=== PATIENT | female | born 1965 | race Caucasian/White ===

== ENCOUNTER → 2021-02-12 11:37 | Outpatient (CLI) | payer OTHER, SELFPAY ==
--- NOTE | 2021-02-12 11:40 | DI.RAD.S_ITS ---
PROCEDURE: XR ANKLE RT MIN 3V INDICATIONS: post fall TECHNIQUE: 3 views of the ankle were acquired. COMPARISON: None. FINDINGS: Bones: There are curvilinear densities distal to the lateral malleolus consistent with avulsion fracture. No dislocations. Ankle mortise is normally aligned. No suspicious bony lesions. Soft tissues: Small tibiotalar joint effusion. Achilles tendon appears normal. Soft tissue swelling over the lateral malleolus. IMPRESSION: Avulsion fracture of the lateral malleolus. Dictated by: Ana Brewer M.D. on 02/12/2021 at 12:01 Approved by: Ana Brewer M.D. on 02/12/2021 at 12:03
== END ==
PROVIDERS: PCP Internal Medicine; Referring Provider Physician Assistant; Visit Provider Physician Assistant
DX: M25.571 Pain in right ankle and joints of right foot (principal); M25.471 Effusion, right ankle; S82.61XA Displaced fracture of lateral malleolus of right fibula, initial encounter for closed fracture; W19.XXXA Unspecified fall, initial encounter
CPT/HCPCS: 73610

== ENCOUNTER 2021-08-27 08:50 | Emergency (ER) | payer OTHER, SELFPAY ==
[2021-08-27] VITALS (9 sets, daily range): BP systolic 104–134; BP diastolic 51–70; PULSE 67–89; RESP 13–21; TEMP 37.1; O2SAT 93–100; BMI 22.1
--- NOTE | 2021-08-27 08:57 | DI.RAD.S_ITS ---
PROCEDURE: XR CHEST 1V INDICATIONS: chest pain TECHNIQUE: One view of the chest was acquired. COMPARISON: None. FINDINGS: Surgical changes and devices: None. Lungs and pleura: Lungs are clear. No pleural effusions or pneumothorax. Mediastinum: Mediastinal contours appear normal. Heart size is normal. Bones and chest wall: No suspicious bony lesions. Overlying soft tissues appear unremarkable. IMPRESSION: Unremarkable portable chest. Dictated by: Luciano Cueva M.D. on 08/27/2021 at 8:13 Approved by: Luciano Cueva M.D. on 08/27/2021 at 8:14
--- NOTE | 2021-08-27 09:01 | PC.NURSE ---
Pt received covid booster yesterday,pt feeling dizzy/syncopal today
[2021-08-27] MEDS: SODIUM CHLORIDE 0.9% 1,000 ML 1000 ML IV (09:18)
[2021-08-27 09:20] LABS: Add Manual Diff / Slide Review NO; Basophils Absolute Auto 0 /uL (0-100); Basophils Percent Auto 0.4 % (0-2); Eosinophils Absolute Auto 0 /uL (0-450); Hematocrit 36.7 % (36-46); Hemoglobin 12.6 g/dL (12.0-16.0); Lymphocytes Absolute Auto 500 /uL (1100-4500); Lymphocytes Percent Auto 13.6 % (25-40); Mean Corpuscular HGB Conc 34.3 % (30-36); Mean Corpuscular Hemoglobin 33.2 PG (26-34); Mean Corpuscular Volume 96.8 fL (80-100); Monocytes Absolute Auto 200 /uL (0-900); Monocytes Percent Auto 5.2 % (3-14); Neutrophils Absolute Auto 3100 /uL (1500-7000); Neutrophils Percent Auto 79.8 % (50-75); Platelet Count 111 X10^3/uL (150-400); Red Blood Cell Count 3.79 X10^6/uL (4.0-5.2); Red Cell Distribution Width 12.9 % (11.6-14.8); White Blood Cell Count 3.9 X10^3/uL (4.5-11.0)
[2021-08-27 09:31] LABS: Alanine Aminotransferase 13 IU/L (<35); Albumin 3.5 g/dL (3.5-5.0); Albumin Globulin Ratio 1.5 (1.0-2.8); Alkaline Phosphatase 31 U/L (38-126); Aspartate Aminotransferase 17 IU/L (14-36); BUN Creatinine Ratio 18.2 (6-22); Bilirubin Total 0.5 mg/dL (0.2-1.3); Blood Urea Nitrogen 12 mg/dL (7-17); Calcium 8.2 mg/dL (8.4-10.2); Carbon Dioxide 29 mmol/L (22-32); Chloride 107 mmol/L (98-107); Creatine Kinase 47 U/L (30-135); Estimated Glomerular Filt Rate > 60.0 mL/min (>60); Globulin 2.4 g/dL (1.7-4.1); Glucose 103 mg/dL (70-100); HEMOLYSIS < 15 (0-50); Lipase 46 U/L (23-300); Magnesium 1.7 mg/dL (1.6-2.3); Potassium 3.9 mmol/L (3.4-5.1); Sodium 137 mmol/L (137-145); Total Protein 5.9 g/dL (6.3-8.2)
[2021-08-27 09:43] LABS: Troponin I < 0.012 ng/mL (0.01-0.034)
--- NOTE | 2021-08-27 09:54 | ED_ITS ---
HPI - Syncope General Chief Complaint: Syncope Stated Complaint: Syncopal episodes Time Seen by Provider: 08/27/21 08:58 Source: patient Mode of arrival: EMS Limitations: no limitations History of Present Illness HPI narrative: Otherwise healthy 56-year-old woman who received her Moderna vaccine booster yesterday. Did not have any issues with the initial vaccine went to bed and feeling well but when she woke up this morning she went to make coffee and had a syncopal episode. She describes feeling dizzy lightheaded aware that she was going to pass out, her was available and helped her to the floor so there was no injury with the fall. She was immediately alert with no seizure- like activity and no loss of urine or stool. Medics were called and when they went to sit her up she again had a near syncopal episode and they laid her flat. That she typically runs both a low blood pressure and a low pulse. She describes no fevers, headaches, chest pain palpitation, abdominal pain no nausea, vomiting, diarrhea, paresthesias or vision changes. Related Data Home Medications Medication Instructions Recorded Confirmed No Known Home Medications 02/12/21 02/12/21 Allergies Allergy/AdvReac Type Severity Reaction Status Date / Time No Known Drug Allergies Allergy Verified 08/27/21 08:58 Review of Systems Review of Systems Narrative: Remainder of complete review of systems is otherwise unremarkable except for that included in the HPI. Patient History Social History Smoking Status: Never smoker Smoking Status: Never smoker alcohol intake frequency: holidays/special occasions only Substance Use Type: does not use Exam Narrative Exam Narrative: General: Healthy appearing, in no acute distress. Able to give a complete and coherent history. Well-nourished well-developed HEENT: Moist mucous membranes, normal sclera with reactive pupils, Neck: No JVD, supple Respiratory: Lungs are clear to auscultation, no wheezing no rales no rhonchi. Full and symmetrical air movement Cardiac: Regular rate and rhythm no murmurs no bruits Abdomen: Soft, nontender, good bowel tones, no flank pain Skin: Warm and dry, no rashes Neurologic: Grossly neurologically intact with no obvious asymmetries or abnormalities Extremities: No trauma, well perfused Psych: Cooperative, appropriate insight and affect After L of fluid, she is no longer orthostatic with blood pressure standing 115/76 and heart rate at 82 with no dizziness or lightheadedness Initial Vital Signs Initial Vital Signs: Vital Signs Temperature 98.7 F 08/27/21 08:55 Pulse Rate 67 08/27/21 08:55 Respiratory Rate 14 08/27/21 08:55 Blood Pressure 111/55 L 08/27/21 08:55 Pulse Oximetry 100 08/27/21 08:55 Course Orders Ordered: ED Orders 08/27/21 08:57 XR chest 1V Stat EKG-12 Lead Stat 08/27/21 09:12 Complete Blood Count AUTO DIFF Stat Comprehensive Metabolic Panel Stat Lipase Stat Magnesium Stat Troponin & CK Cardiac Panel Stat Sodium Chloride (Normal Saline 0.9%) 1,000 mls @ 1,000 mls/hr IV BOLUS ONE Stop: 08/27/21 09:58 Last Admin: 08/27/21 09:18 Dose: 1,000 mls/hr Documented by: DIGNA Vital Signs Vital signs: Vital Signs - 8 hr 08/27/21 08:55 Temperature 98.7 F Pulse Rate 67 Respiratory Rate 14 Blood Pressure 111/55 L Pulse Oximetry 100 MDM - Syncope Lab Data Result diagrams: 08/27/21 09:12 08/27/21 09:12 Labs: Lab Results 08/27/21 08/27/21 Range/Units 09:12 09:12 WBC 3.9 L (4.5-11.0) X10^3/uL RBC 3.79 L (4.0-5.2) X10^6/uL Hgb 12.6 (12.0-16.0) g/dL Hct 36.7 (36-46) % MCV 96.8 (80-100) fL MCH 33.2 (26-34) PG MCHC 34.3 (30-36) % RDW 12.9 (11.6-14.8) % Plt Count 111 L (150-400) X10^3/uL Neut % (Auto) 79.8 H (50-75) % Lymph % (Auto) 13.6 L (25-40) % Letcher % (Auto) 5.2 (3-14) % Eos % (Auto) 1.0 L (2-4) % Baso % (Auto) 0.4 (0-2) % Neut # (Auto) 3100 (3799-4556) /uL Lymph # (Auto) 500 L (2661-8657) /uL Letcher # (Auto) 200 (0-900) /uL Eos # (Auto) 0 (0-450) /uL Baso # (Auto) 0 (0-100) /uL Sodium 137 (137-145) mmol/L Potassium 3.9 (3.4-5.1) mmol/L Chloride 107 (98-107) mmol/L Carbon Dioxide 29 (22-32) mmol/L BUN 12 (7-17) mg/dL Creatinine 0.66 (0.52-1.04) mg/dL Estimated GFR > 60.0 (>60) mL/min BUN/Creatinine Ratio 18.2 (6-22) Glucose 103 H (70-100) mg/dL Calcium 8.2 L (8.4-10.2) mg/dL Magnesium 1.7 (1.6-2.3) mg/dL Total Bilirubin 0.5 (0.2-1.3) mg/dL AST 17 (14-36) IU/L ALT 13 (<35) IU/L Alkaline Phosphatase 31 L (38-126) U/L Total Creatine Kinase 47 (30-135) U/L CK-MB (CK-2) TNP CK-MB (CK-2) Rel Index TNP Troponin I < 0.012 (0.01-0.034) ng/mL Total Protein 5.9 L (6.3-8.2) g/dL Albumin 3.5 (3.5-5.0) g/dL Globulin 2.4 (1.7-4.1) g/dL Albumin/Globulin Ratio 1.5 (1.0-2.8) Lipase 46 (23-300) U/L ECG Data Interpretation: Sinus rhythm at a rate of 66 Normal axis, normal intervals No acute ischemia MDM Narrative Medical decision making narrative: 56-year-old woman with syncopal episode 24 hours after her Moderna booster. She is rehydrated today labs are entirely reassuring as is clinical exam. She seems like she is back to her baseline reassurance is given and she is safe for home discharge Discharge Plan Departure Patient Disposition: Home Clinical Impression: Vasovagal syncope, Adverse reaction to drug Instructions: DI for Syncope in Adults (Fainting) Activity Restrictions/Additional Instructions: Thank you for coming in today Your symptoms are absolute consistent with vasovagal syncope. There is no evidence of stroke, heart attack, overwhelming infection or other life- threatening issue. It is a bit suspicious that it is 24 hours after your booster COVID injection. Presumption is that they are somewhat related. After 1 L of normal saline in the emergency department that you are no longer orthostatic and your safe to go home There are no restrictions recommended for you today. Thank you for being vaccinated Prescriptions: No Action No Known Home Medications 0RF Referrals: Angela Cochran MD [Primary Care Provider] -
== END 2021-08-27 10:31 | disposition home or self-care (01) ==
PROVIDERS: Emergency Provider Emergency Medicine; PCP Internal Medicine
DX: R55 Syncope and collapse (principal); T50.B95A Adverse effect of other viral vaccines, initial encounter
CPT/HCPCS: 36415; 71045; 80053; 82550; 83690; 83735; 84484; 85025; 93005; 93010; 96360; 99284

== ENCOUNTER → 2023-07-08 10:22 | Outpatient (CLI) | payer OTHER, SELFPAY ==
--- NOTE | 2023-07-08 | DI.RAD.S_ITS ---
Bone Density Report Name: ERICA PRADO Age: 58 Sex: Female Ethnicity: White Date of : 1965 Indication: postmenopausal; screening for osteoporosis; Referring Provider: IAM MEZA Study: Bone densitometry was performed. Exam Date: July 08, 2023 Accession number: [id number] Bone Density: Region BMD T-score Z-score Classification AP Spine(L1-L4) 0.889 -1.4 -0.2 Osteopenia Femoral Neck (Left) 0.794 -0.5 0.7 Normal Total Hip (Left) 0.879 -0.5 0.3 Normal Femoral Neck (Right) 0.719 -1.2 0.0 Osteopenia Total Hip (Right) 0.783 -1.3 -0.5 Osteopenia Total Hip Mean 0.831 -0.9 -0.1 Normal World Health Organization criteria for BMD impression classify patients as: Normal (T-score at or above -1.0), Osteopenia (T-score between -1.0 and -2.5), or Osteoporosis (T-score at or below -2.5). 10-year Fracture Risk(1): Major Osteoporotic Fracture 6.1% Hip Fracture 0.4% Reported Risk Factors: [place] (), Neck BMD=0.719, BMI=21.5 (1) FRAX(R) Version 3.08. Fracture probability calculated for an untreated patient. Fracture probability may be lower if the patient has received treatment. Impression: The patient has low bone mass, based on the Total Spine T-score. The patient has an estimated ten-year risk of hip fracture of 0.4% and an estimated ten-year risk of major fracture of 6.1%, based on the WHO FRAX algorithm. Discussion: BONE DENSITY IS LOW AT ONE OR MORE SKELETAL SITES. This patient's lowest T-score is low at one or more skeletal sites. It meets the World Health Organization's (WHO) criteria for low bone mass (T-score between -1.0 and -2.5). The patient's 10-year risk of fracture as calculated by FRAX is less than the threshold where pharmacological therapy is recommended by the National Osteoporosis Foundation (NOF). However, all treatment decisions require clinical judgment and consideration of individual patient factors, including patient preferences, comorbidities, previous drug use, risk factors not captured in the FRAX model (e.g., frailty, falls, vitamin D deficiency, increased bone turnover, interval significant decline in bone density) and possible under or overestimation of fracture risk by FRAX. The patient should follow a healthful lifestyle (good nutrition with adequate calcium and vitamin D, and appropriate weight-bearing exercise). Follow-Up: Consider repeating this study in 2 to 3 years to reassess this patient's status, or sooner if there is some new clinical indication. Reported by: WEN FORD M.D. on 07/08/2023 10:57:00 AM.
== END ==
PROVIDERS: PCP Physician Assistant; Referring Provider Physician Assistant; Visit Provider Physician Assistant
DX: Z78.0 Asymptomatic menopausal state (principal); Z87.81 Personal history of (healed) traumatic fracture; M85.88 Other specified disorders of bone density and structure, other site
CPT/HCPCS: 77080

== ENCOUNTER → 2023-11-24 16:18 | Outpatient (CLI) | payer OTHER, SELFPAY ==
--- NOTE | 2023-11-24 16:19 | DI.RAD.S_ITS ---
PROCEDURE: XR HAND LT MIN 3V INDICATIONS: Middle and ring finger injury TECHNIQUE: 3 views of the hand(s) acquired. COMPARISON: None. FINDINGS: Bones: No fractures or dislocations. Carpal bones are normally aligned. No suspicious bony lesions. Soft tissues: No suspicious soft tissue calcifications. IMPRESSION: No acute fracture. No osseous lesion. If clinical suspicion and/orsymptoms persist, further assessment with repeat plainfilms in 10-14 days, or advanced imaging (e.g., CT, MRI, or bone scan) may be helpful for further assessment. Dictated by: Sheldon JACINTO Interpreted: Itzel Grove MD on 11/24/2023 at 16:44 Transcribed by: GENIE on 11/24/2023 at 16:45 Approved by: Itzel Grove M.D. on 11/28/2023 at 11:10
== END ==
PROVIDERS: PCP Physician Assistant; Referring Provider Nurse Practitioner Family; Visit Provider Nurse Practitioner Family
DX: S69.92XA Unspecified injury of left wrist, hand and finger(s), initial encounter (principal); X58.XXXA Exposure to other specified factors, initial encounter
CPT/HCPCS: 73130